=== PATIENT | female | born 1990 | race Hispanic/Latino ===

== ENCOUNTER 2018-09-29 08:13 | Emergency (ER) | payer MEDICAID, SELFPAY ==
[2018-09-29 09:03] LABS: #Basophils 0.1 thou/uL (0.0-0.2); #Eosinphils 0.1 thou/uL (0.0-0.7); #Lymphocytes 1.5 thou/uL (1.20-3.40); #Monocytes 0.5 thou/uL (0.11-0.59); #Neutrophils 2.6 thou/uL (1.40-6.50); %Basophils 1.4 % (0.0-1.0); %Eosinophils 1.9 % (0.0-10.0); %Lymphocytes 32.2 % (21.0-51.0); %Monocytes 10.1 % (0.0-10.0); %Neutrophils 54.4 % (42.0-75.0); Hemoglobin 13.7 g/dL (12.0-16.0); Mean Corpuscular HGB CONC 33.2 g/dL (32.0-36.0); Mean Corpuscular Hemoglobin 32.2 pg (27.0-31.0); Mean Corpuscular Volume 96.9 fL (78.0-98.0); Mean Platelet Volume 8.3 fL (7.4-10.4); Platelet Count 224 thou/uL (130-400); RBC Distribution Width 12.5 % (11.5-14.5); Red Blood Cell (RBC) Count 4.25 mill/uL (4.20-5.40); White Blood Cell (WBC) Count 4.7 thou/uL (4.8-10.8)
--- NOTE | 2018-09-29 11:08 | ULT ---
PELVIC ULTRASOUND: Date: 09/29/18 HISTORY: Abdominal spotting x4 days. Today, bleeding is heavier. FINDINGS: Real-time imaging of the pelvis was obtained both transabdominally, as well as with an endovaginal pr obe. Uterus measures 5.9 x 6.7 x 9.5 cm in size. Within the endometrium is what appears to be a probable i rregularly shaped intrauterine gestational sac, and within this is a very hyperechoic round density m easuring 1.5 cm, not in any way a typical appearance for a pole. This may represent some type o f hemorrhage or some type of degeneration of the pole. The right and left adnexa are well visualized. There is a 2.2 cm corpus luteum type cyst involving th e right ovary. DOPPLER EVALUATION WITH SPECTRAL ANALYSIS: Normal flow is shown to the adnexa. IMPRESSION: Irregularly shaped cystic structure which appears to be an intrauterine gestational sac with an abnor mal echogenic round density measuring 1.5 cm in size associated with the sac. This is a very abnormal appearance for a pole. It probably represents some type of degeneration or hemorrhage. Follow- up ultrasound would be recommended as indicated clinically. POS: [facility]
[2018-09-29 11:21] LABS: Bilirubin Negative (Negative); Blood, Urine Moderate (Negative); Clarity CLEAR (Clear); Glucose, Urine (Dipstick) Negative (Negative); Leukocyte Negative (Negative); Nitrite Negative (Negative); Protein, Urine (Dipstick) Negative (Neg-Trace); Specific Gravity, Urine 1.008 (1.002-1.036); Urobilinogen 0.2 mg/dL (0.2-1.0)
[2018-09-29 11:25] LABS: Bacteria/HPF None Seen HPF (None Seen); Hyaline Casts/LPF 0-3 HYALINE CAST LPF (0-3 Hyaline); Pathc Cast-AUWi Flag 0.14 (0-2.49); RBC/HPF 0-3 HPF (0-3); Squamous Epithelial None Seen HPF (0-3); WBC/HPF None Seen HPF (0-3)
[2018-10-01 23:49] LABS: Chlamydia by PCR Not Detected (NotDetected); GC by PCR Not Detected (NotDetected)
== END 2018-09-29 12:17 | disposition home or self-care (01) ==
LOC: ERS 08:13
DX: O20.0 Threatened abortion (principal); Z3A.08 8 weeks gestation of pregnancy
CPT/HCPCS: 36415; 76856; 81003; 81015; 84702; 85025; 86900; 86901; 87480; 87491; 87510; 87591; 87660

== ENCOUNTER 2018-09-29 22:07 | Emergency (ER) | payer SELFPAY | END 2018-09-29 23:16 | disposition home or self-care (01) | LOC: ERS 22:07 | DX: O20.0 Threatened abortion (principal); Z3A.01 Less than 8 weeks gestation of pregnancy | CPT/HCPCS: 99283 ==

== ENCOUNTER 2020-05-05 14:53 | Emergency (ER) | payer OTHER, SELFPAY ==
[2020-05-05 15:30] LABS: #Lymphocytes 1.9 thou/uL (1.20-3.40); #Monocytes 0.5 thou/uL (0.11-0.59); #Neutrophils 4.1 thou/uL (1.40-6.50); %Basophils 0.7 % (0.0-1.0); %Eosinophils 0.5 % (0.0-10.0); %Lymphocytes 28.7 % (21.0-51.0); %Monocytes 7.1 % (0.0-10.0); %Neutrophils 63.1 % (42.0-75.0); Hemoglobin 13.4 g/dL (12.0-16.0); Mean Corpuscular HGB CONC 33.9 g/dL (32.0-36.0); Mean Corpuscular Hemoglobin 31.7 pg (27.0-31.0); Mean Corpuscular Volume 93.5 fL (78.0-98.0); Mean Platelet Volume 8.5 fL (7.4-10.4); Platelet Count 236 thou/uL (130-400); RBC Distribution Width 12.5 % (11.5-14.5); Red Blood Cell (RBC) Count 4.21 mill/uL (4.20-5.40); White Blood Cell (WBC) Count 6.5 thou/uL (4.8-10.8)
[2020-05-05 16:11] LABS: ALT (SGPT) 13 U/L (8-55); AST (SGOT) 8 U/L (5-34); Albumin 3.9 g/dL (3.5-5.0); Alkaline Phosphatase 55 U/L (40-110); Anion Gap 12 mmol/L (10-20); BUN (Urea Nitrogen) 11 mg/dL (7.0-18.7); Bilirubin, Total 0.2 mg/dL (0.2-1.2); Calc. Creatinine Clearance 0 mL/min (70-130); Calcium 8.6 mg/dL (7.8-10.44); Carbon Dioxide 23 mmol/L (22-29); Chloride 105 mmol/L (98-107); Estimated GFR-MDRD Greater than 90; Globulin 2.7 g/dL (2.4-3.5); Glucose 96 mg/dL (70-105); Potassium 3.9 mmol/L (3.5-5.1); Protein, Total 6.6 g/dL (6.0-8.3); Sodium 136 mmol/L (136-145)
[2020-05-05 17:54] LABS: Bilirubin Negative (Negative); Blood, Urine Negative (Negative); Clarity Clear (Clear); Glucose, Urine (Dipstick) Normal (Negative); Ketone, Urine Negative (Negative); Leukocyte Negative Leu/uL (Negative); Nitrite Negative (Negative); Protein, Urine (Dipstick) Negative (Neg-Trace); Specific Gravity, Urine 1.022 (1.002-1.036); Urobilinogen Normal mg/dL (Less than 2)
--- NOTE | 2020-05-05 18:15 | ULT ---
Exam: Transabdominal and endovaginal pelvic ultrasound HISTORY: patient. Vaginal bleeding. COMPARISON: None TECHNIQUE: Transabdominal and endovaginal imaging of the pelvis is performed. Ovaries are interrogate d with grayscale, color flow, Doppler imaging and spectral wave form analysis FINDINGS: Uterus: No myometrial masses. Uterus measurin.7 x 10.2 x 5.1 cm. Endometrium: Within the endometrium is a gestational sac, yolk sac and pole. [place]-rump length is 0.41 cm corresponding to gestational age of 6 weeks 1 day. No subchorionic hemorrhage. heart tones: 111 bpm Nabothian cyst is noted.. Free fluid: The cul-de-sac Right ovary: Normal echotexture Right ovary measurement: 2.1 x 2.7 x 4.1 cm Left ovary: Normal echotexture. Anechoic focus in the left ovary measures 2.2 x 1.9 x 2.6 cm. Possibi lity of a complex cyst versus a involuting corpus luteal cyst. Left ovary measurements: 2.4 x 2.6 x 3.4 cm Ovarian Doppler: There is vascular flow to the left and right ovary. IMPRESSION: 1. Single intrauterine gestation with heart tones. Gestational age by crown-rump length is 6 we eks 1 day. Follow-up ultrasound and 18-20 weeks gestation age is recommended to complete the survey.
== END 2020-05-05 18:45 | disposition home or self-care (01) ==
LOC: ERS 14:53
DX: O20.0 Threatened abortion (principal); Z3A.01 Less than 8 weeks gestation of pregnancy
CPT/HCPCS: 36415; 76856; 80053; 81003; 84702; 85025; 86900; 86901

== ENCOUNTER 2020-08-11 12:56 | Outpatient (CLI) | payer OTHER ==
--- NOTE | 2020-08-11 14:48 | ULT ---
OB ULTRASOUND: HISTORY: anatomy. FINDINGS: Single viable intrauterine . Gestational age by ultrasound 20 weeks 4 days. BIOMETRY: BPD: 20 weeks 6 days HC: 20 weeks 5 days AC: 20 weeks 5 days FL: 20 weeks 4 days EFW: 367 gm, 20 weeks 0 days. Amniotic fluid: Adequate. TREVON upper normal recorded at 20.0 cm. heart rate 152 b.p.m. Placenta: Posterior. position: Transverse. Cervical length: 5.5 cm. anatomy: Intracranial contents, 4-chamber heart, stomach, kidneys, cord insertion, bladder, spine, lips, onset , extremities, and 3-vessel cord were all imaged. No abnormality identified. IMPRESSION: A 20-week 4-day gestational age by ultrasound. No abnormality identified. POS: [facility]
== END 2020-08-11 12:57 | disposition home or self-care (01) ==
LOC: ULT 12:56
PROVIDERS: ATTEND Family Medicine
DX: O09.892 Supervision of other high risk pregnancies, second trimester (principal); Z3A.20 20 weeks gestation of pregnancy
CPT/HCPCS: 76805

== ENCOUNTER 2020-11-22 14:23 | Emergency (ER) | payer OTHER | END 2020-11-22 15:34 | disposition home or self-care (01) | LOC: ERS 14:23 | DX: O99.353 Diseases of the nervous system complicating pregnancy, third trimester (principal); G51.0 Bell's palsy; Z3A.35 35 weeks gestation of pregnancy | CPT/HCPCS: 36416; 76819; 99283 ==

== ENCOUNTER 2022-06-26 19:13 | Emergency (ER) | payer MEDICAID, SELFPAY ==
[2022-06-26] MEDS ORDERED: Ketorolac Tromethamine 30 MG/ML VIAL ONE (19:43)
[2022-06-26 19:48] LABS: #Basophils 0.1 thou/uL (0.0-0.2); #Lymphocytes 2.3 thou/uL (1.20-3.40); #Monocytes 0.5 thou/uL (0.11-0.59); #Neutrophils 2.4 thou/uL (1.40-6.50); %Basophils 1.3 % (0.0-1.0); %Eosinophils 0.8 % (0.0-10.0); %Lymphocytes 43.4 % (21.0-51.0); %Monocytes 8.9 % (0.0-10.0); %Neutrophils 45.6 % (42.0-75.0); BHCG - Serum Negative (NEGATIVE); Hemoglobin 14.3 g/dL (12.0-16.0); Mean Corpuscular Hemoglobin 32.3 pg (27.0-31.0); Mean Corpuscular Volume 95.1 fl (78.0-98.0); Mean Platelet Volume 8.8 fL (7.4-10.4); Platelet Count 230 10x3/uL (130-400); Pregs Control Background? CLEAR/WHITE (CLR/WHITE); Pregs Control Bar Appear? YES (CONTROL BAR); RBC Distribution Width 11.8 % (11.5-14.5); Red Blood Cell (RBC) Count 4.43 mill/uL (4.20-5.40); White Blood Cell (WBC) Count 5.4 10x3/uL (4.8-10.8)
[2022-06-26 20:07] LABS: ALT (SGPT) 67 U/L (8-55); AST (SGOT) 37 U/L (5-34); Albumin 4.4 g/dL (3.5-5.0); Alkaline Phosphatase 107 U/L (40-110); Anion Gap 10 mmol/L (10-20); BUN (Urea Nitrogen) 14 mg/dL (7.0-18.7); Bilirubin, Total 0.3 mg/dL (0.2-1.2); Calc. Creatinine Clearance 0 mL/min (70-130); Calcium 8.7 mg/dL (7.8-10.44); Carbon Dioxide 23 mmol/L (22-29); Chloride 107 mmol/L (98-107); Estimated GFR 117; Globulin 3.3 g/dL (2.4-3.5); Glucose 104 mg/dL (70-105); Lipase 26 U/L (8-78); Potassium 3.8 mmol/L (3.5-5.1); Protein, Total 7.7 g/dL (6.0-8.3); Sodium 136 mmol/L (136-145)
== END 2022-06-26 22:31 | disposition home or self-care (01) ==
LOC: ERS 19:13
DX: N83.7 Hematoma of broad ligament (principal)
CPT/HCPCS: 76856; 80053; 83690; 84703; 85025; 96374; J1885